=== PATIENT | male | born 1965 | race Two or more races ===

== ENCOUNTER 2021-10-27 17:27 | Emergency (ER) | payer OTHER ==
[~2021-10-27] VITALS: Ht 177.8 cm; Wt 93.9 kg
[2021-10-27] MEDS ORDERED: NAPROXEN250 MG PO (21:09)
== END 2021-10-27 21:16 | disposition home or self-care (01) ==
LOC: ER 17:27
DX: J06.9 Acute upper respiratory infection, unspecified (principal); J02.9 Acute pharyngitis, unspecified; Z20.822 Contact with and (suspected) exposure to COVID-19

== ENCOUNTER 2021-12-23 21:04 | Emergency (ER) | payer OTHER ==
[~2021-12-23] VITALS: Ht 177.8 cm; Wt 88.5 kg
[~2021-12-23 21:04] MED LIST: NAPROXEN250 MG PO
== END 2021-12-24 00:07 | disposition home or self-care (01) ==
LOC: ER 21:04
DX: K29.70 Gastritis, unspecified, without bleeding (principal)